=== PATIENT | male | born 1950 | race Caucasian/White ===

== ENCOUNTER 2018-02-21 10:21 | Inpatient (IN) ==
[2018-03-23 16:43] VITALS: BP 105/71
== END 2018-03-23 15:05 | DRG 92 ==
LOC: EDUNIT# → EDBD → N.ED 10:21 → N.EDINP 16:20 → SUATTDRO 16:20 → N.3E 19:31
PROVIDERS: ADMIT Internal Medicine Infectious Disease; ATTEND Internal Medicine